=== PATIENT | female | born 1975 | race American Indian/Alaskan Native ===

== ENCOUNTER 2017-01-01 11:00 | Outpatient (CLI) | payer OTHER | END 2017-01-01 11:01 | disposition home or self-care (01) | LOC: SLR 11:00 | PROVIDERS: ATTEND Specialist | DX: G47.30 Sleep apnea, unspecified (principal); E66.9 Obesity, unspecified | CPT/HCPCS: 95810 ==

== ENCOUNTER 2017-06-12 10:30 | Inpatient (IN) | payer OTHER ==
--- NOTE | 2017-06-12 11:05 | Anesthesia Consultation ---
Anesthesia Consult and Med Hx - Airway Anesthetic Teeth Evaluation: Good ROM Head & Neck: Adequate Mental/Hyoid Distance: Adequate Mallampati Class: Class III Intubation Access Assessment: Possibly Difficult - Pulmonary Exam CTA: Yes - Cardiac Exam Cardiac Exam: RRR - Pre-Operative Health Status ASA Pre-Surgery Classification: ASA3 Proposed Anesthetic Plan: General - Pulmonary Hx Sleep Apnea: Yes - Cardiovascular System Hx Hypertension: Yes (6 YEARS) - Central Nervous System Hx Psychiatric Problems: Yes - Hematic Hx Anemia: Yes - Other Systems Hx Alcohol Use: Yes (OCC) Hx Substance Use: No Hx Cancer: No Hx Obesity: Yes
[2017-06-12] MEDS ORDERED: PEPCID PO NR (12:00)
[2017-06-12] MEDS ORDERED: TRANSDERM-SCOP TD NR (12:00)
[2017-06-12] MEDS ORDERED: VERSED IV NR (12:00)
[2017-06-15] MEDS ORDERED: MORPHINE IV PRN ×2 (12:46→13:04)
[2017-06-15] MEDS ORDERED: APRESOLINE IV PRN (12:46)
[2017-06-15] MEDS ORDERED: ZOFRAN IV PRN (12:46)
[2017-06-15] MEDS ORDERED: LACTATED RINGERS 1,000 ML IV SCH (13:00)
[2017-06-16] MEDS ORDERED: NACL BACTERIOSTATIC INFILTRATI ONE (06:33)
[2017-06-16] MEDS ORDERED: MARCAINE 0.5% 30 ML INFILTRATI ONE (06:35)
[2017-06-16] MEDS ORDERED: XYLOCAINE 1% 20 mL ONE (06:35)
[2017-06-16 06:56] LABS: Bilirubin,Urine NEG (Negative); Blood,Urine NEG (Negative); Color,Urine Yellow (Yellow); Protein,Urine <15 mg/dL mg/dL (Negative); Urobilinogen,Urine < 2.0 mg/dL (<2.0)
[2017-06-16] MEDS: LACTATED RINGERS 1,000 ML IV SCH ×3 (07:00→22:34)
[2017-06-16] MEDS ORDERED: LOVENOX SUB-Q NR (07:00)
[2017-06-16] MEDS ORDERED: TRANSDERM-SCOP TD SCH (07:00)
[2017-06-16] MEDS ORDERED: FLAGYL 500 MG/100 ML 500 MG/100 ML BAG IV NR (07:00)
[2017-06-16] MEDS ORDERED: ANCEF/STERILE WATER 2 GM/20 ML 2 GM/20 ML SYRINGE IV NR (07:00)
[2017-06-16] MEDS ORDERED: PEPCID IV SCH (07:07)
[2017-06-16] MEDS ORDERED: VERSED IV NR (07:08)
--- NOTE | 2017-06-16 07:16 | Anesthesia Day of Surgery ---
Anesthesia Day of Surgery - Day of Surgery Patient Examined: Yes Patient H&P Reviewed: Yes Patient is NPO: Yes
[2017-06-16] MEDS ORDERED: DIPRIVAN 10 MG/ML IV ONE ×2 (07:21→07:22)
[2017-06-16] MEDS ORDERED: WATER FOR IRRIG STERILE IR ONE (07:24)
[2017-06-16] MEDS ORDERED: SUBLIMAZE ONE (07:26)
[2017-06-16] MEDS ORDERED: NACL 0.9% IR ONE ×2 (08:25→08:26)
[2017-06-16] MEDS ORDERED: XYLOCAINE 1% 20 mL INFILTRATI ONE (08:26)
[2017-06-16] MEDS ORDERED: MARCAINE 0.5% INFILTRATI ONE (08:26)
[2017-06-16] MEDS ORDERED: ROBINUL ONE (09:39)
[2017-06-16] MEDS ORDERED: ZOFRAN ONE (09:39)
[2017-06-16] MEDS ORDERED: DILAUDID IV PRN (09:42)
[2017-06-16] MEDS: REGLAN IV PRN ×2 (09:48→20:41)
[2017-06-16] MEDS: MYLICON PO PRN ×2 (10:09→19:03)
[2017-06-16] MEDS: NORCO PO PRN (10:18)
[2017-06-16 10:46] LABS: Basophils % (Auto) 0.4 % (0.0-1.8); Eosinophils % (Auto) 0.2 % (0.0-4.3); Hematocrit 36.4 % (30.3-42.9); Hemoglobin 11.4 gm/dl (10.1-14.3); Lymphocytes # (Auto) 1.7 K/mm3 (1.2-5.4); Lymphocytes % (Auto) 20.5 % (13.4-35.0); Mean Corpuscular HGB Conc 31 % (30-34); Mean Corpuscular Volume 75 fl (79-97); Monocytes # (Auto) 0.5 K/mm3 (0.0-0.8); Monocytes % (Auto) 6.6 % (0.0-7.3); Platelet Count 181 K/mm3 (140-440); Red Blood Count 4.86 M/mm3 (3.65-5.03); Red Cell Distribution Width 17.1 % (13.2-15.2)
[2017-06-16 10:48] LABS: Mean Corpuscular Hemoglobin 23 pg (28-32)
[2017-06-16 11:05] LABS: BUN/Creatinine Ratio 9; Blood Urea Nitrogen 6 mg/dL (7-17); Calcium 8.5 mg/dL (8.4-10.2); Hemolysis Index 1
[2017-06-16 11:39] LABS: Alanine Aminotransferase 51 units/L (7-56)
[2017-06-16] MEDS: MORPHINE IV PRN ×2 (12:24→17:10)
--- NOTE | 2017-06-16 14:11 | Post Anesthesia Evaluation ---
- Post Anesthesia Evaluation Patient Participated: Yes Airway Patent: Yes Stable Respiratory Function: Yes Nausea/Vomiting: No Temp > 96.8F: Yes Pain Manageable: Yes Adequeate Hydration: Yes Anesthesia Complications: No
[2017-06-16 19:56] LABS: Hematocrit 33.4 % (30.3-42.9); Hemoglobin 10.6 gm/dl (10.1-14.3)
[2017-06-16] MEDS: DILAUDID IV PRN (20:41)
[2017-06-17] MEDS: NORCO PO PRN ×3 (00:41→13:07)
[2017-06-17] MEDS ORDERED: LOPRESSOR IV SCH (01:00)
[2017-06-17] MEDS ORDERED: LOPRESSOR IV ONE (01:54)
[2017-06-17] MEDS ORDERED: NACL ONE (03:26)
--- NOTE | 2017-06-17 04:08 | Cat Scan Report ---
FINAL REPORT EXAM: CT ANGIO CHEST HISTORY: elevated D-dimers s/p gastric surgery with extended tachycardia TECHNIQUE: A CT angiogram was performed following the intravenous injection of 100 cc of Omnipaque 350. Rotational, sagittal and coronal MIP reconstructions were obtained. FINDINGS: The lungs reveal atelectatic changes in both lower lobes. The lungs are not overtly congested. There is no evidence of pulmonary embolus or aortic dissection. The heart size is normal. Pericardial fluid is not seen. The thoracic aorta is normal in diameter. There is no evidence of adenopathy. In the upper abdomen the adrenal glands appear normal. The skeletal structures are well-maintained. At the thoracic inlet the thyroid gland appears normal. IMPRESSION: No evidence of pulmonary embolus, aortic dissection, or vascular congestion. Bibasilar atelectatic changes. No acute infiltrates or effusions.
[2017-06-17] MEDS: REGLAN IV PRN (04:20)
[2017-06-17] MEDS: DILAUDID IV PRN (04:20)
[2017-06-17] MEDS: MYLICON PO PRN ×2 (04:20→10:45)
--- NOTE | 2017-06-17 05:02 | Consultation ---
REQUESTING CONSULT: Dr. Burger. REASON FOR CONSULT: Medical management of 41-year-old postop patient, who had gastric bypass procedure, presenting with tachycardia. HISTORY OF PRESENT ILLNESS: The patient is a 41-year-old female who had gastric bypass procedure done yesterday and was noted to be having tachycardia with pulse rates running up to 130s and the patient denies history of chest pain. Denies history of shortness of breath, fever or chills and was presented for consultation because of tachycardia. PAST MEDICAL HISTORY: Pertinent for hypertension, anemia, sudden rapid heartbeat in the past, and also the patient has past history of obesity and some ill-defined psychiatric illness. FAMILY HISTORY: Noncontributory. SOCIAL HISTORY: The patient drinks alcohol and the patient does not use illicit drugs. It is not known whether the patient smokes cigarettes. REVIEW OF SYSTEMS: CONSTITUTIONAL: There is no fever, no chills, no diaphoresis. HEENT: There is no headache or sore throat. CARDIOVASCULAR SYSTEM: Rapid heartbeat noted. No chest pain. RESPIRATORY: There is no shortness of breath or cough. GASTROINTESTINAL SYSTEM: There is no nausea, no vomiting, but of course there is abdominal pain at the site of surgery. NEUROLOGICAL SYSTEM: There is no numbness, no dizziness, no altered mental status. MUSCULOSKELETAL SYSTEM: There is no joint pain or swelling. DERMATOLOGICAL SYSTEM: There is no skin rash or itching. GENITOURINARY: There is no dysuria, hematuria or flank pain. Rest of system review is normal. PHYSICAL EXAMINATION: GENERAL: At the time of exam, the patient was found to be alert, oriented x 3 and not in acute distress. VITAL SIGNS: Shows temperature of 99.9, pulse of 129, respirations of about 18, blood pressure of 134/65, O2 sat of 95% on room air. HEENT: Pupils to be equal, round and reactive to light and accommodating. Extraocular muscles are intact. NECK: Supple with no JVD or carotid bruit. CARDIOVASCULAR SYSTEM: Showed normal first and second heart sounds with rapid beat with no gallops or murmurs. RESPIRATORY SYSTEM: Show good air entry on both sides of the lungs with no abnormal breath sounds. GASTROINTESTINAL: Abdominal exam was deferred because of recent surgery. NEUROLOGIC: Showed no focal deficits. MUSCULOSKELETAL SYSTEM: Show no joint swelling or tenderness. DERMATOLOGICAL SYSTEM: Show no skin rash. GENITOURINARY: Showing no costovertebral angle tenderness. PERTINENT LABORATORY DATA AND IMAGING STUDIES: The patient's CBC done on 06/16/2017 showed normal white count, normal hemoglobin and normal hematocrit. CBC differential showed elevated segmented neutrophil of 72.3%. The patient's chemistry shows low sodium of 132, normal potassium and low chloride of 96.6. The patient's renal function was unremarkable. Glucose level was unremarkable. The patient's urinalysis was unremarkable. ASSESSMENT AND PLAN: A 41-year-old female with 1 day postop gastric bypass procedure with tachycardia. The patient will have 12-lead EKG done and D-dimer also checked and if D-dimer is elevated, the patient will have CT angiogram of the chest to rule out: PE that is common during procedure of the gastric bypass. The patient will continue other management postoperatively and the hospitalist group will follow up with the patient. JOB# [id number] OCN/NTS
[2017-06-17 06:20] LABS: Basophils % (Auto) 0.3 % (0.0-1.8); Hemoglobin 10.1 gm/dl (10.1-14.3); Lymphocytes # (Auto) 1.6 K/mm3 (1.2-5.4); Mean Corpuscular HGB Conc 33 % (30-34); Mean Corpuscular Volume 72 fl (79-97); Monocytes # (Auto) 1.1 K/mm3 (0.0-0.8); Monocytes % (Auto) 11.4 % (0.0-7.3); Platelet Count 150 K/mm3 (140-440); Red Blood Count 4.28 M/mm3 (3.65-5.03); Red Cell Distribution Width 17.2 % (13.2-15.2)
[2017-06-17 06:24] LABS: Mean Corpuscular Hemoglobin 24 pg (28-32)
[2017-06-17 06:40] LABS: BUN/Creatinine Ratio 7; Blood Urea Nitrogen 4 mg/dL (7-17); Calcium 7.6 mg/dL (8.4-10.2); Hemolysis Index 4
[2017-06-17] MEDS: LOVENOX SUB-Q SCH ×2 (08:55→10:00)
[2017-06-17] MEDS: PROzac PO SCH ×2 (08:55→10:00)
[2017-06-17] MEDS ORDERED: LOPRESSOR PO SCH (14:30)
--- NOTE | 2017-06-17 15:15 | Discharge Summary ---
Providers - Providers Date of Admission: 06/16/17 05:56 Date of discharge: 06/17/17 Attending physician: JAMES LEVY 06/16/17 19:24 Consult to Physician [CONS] Urgent Comment: Consulting Provider: KEO MUJICA Physician Instructions: eval and treat Reason For Exam: elevated heart rate Primary care physician: HUY LYNN Hospitalization Condition: Good Disposition: DC-01 TO HOME OR SELFCARE Core Measure Documentation - Palliative Care Palliative Care/ Comfort Measures: Not Applicable - Core Measures Any of the following diagnoses?: none Exam - Constitutional Vitals: Temp Pulse Resp BP Pulse Ox 98.9 F 94 H 18 119/79 97 06/17/17 12:00 06/17/17 13:09 06/17/17 12:00 06/17/17 12:00 06/17/17 13:09 General appearance: Present: no acute distress, well-nourished - EENT Eyes: Present: PERRL, EOM intact ENT: hearing intact, clear oral mucosa, dentition normal - Neck Neck: Present: supple, normal ROM - Respiratory Respiratory effort: normal Respiratory: bilateral: CTA - Cardiovascular Rhythm: regular - Extremities Extremities: no ischemia, pulses intact, No edema, Full ROM Peripheral Pulses: within normal limits - Abdominal General gastrointestinal: Present: soft, non-tender, normal bowel sounds Female genitourinary: Present: deferred - Rectal Rectal Exam: deferred - Integumentary Integumentary: Present: clear, warm, dry - Musculoskeletal Musculoskeletal: strength equal bilaterally - Psychiatric Psychiatric: appropriate mood/affect Plan Activity: no restrictions Weight Bearing Status: Full Weight Bearing Diet: regular Wound: keep clean and dry Follow up with: HUY LYNN MD [Primary Care Provider] - 7 Days JAMES LEVY MD [Staff Physician] - 7 Days
[2017-06-17 17:58] VITALS: BP 113/64
--- NOTE | 2017-06-17 18:20 | Progress Note ---
Assessment and Plan Assessment and plan: Assessment Sinus Tachy, improved Morbid Obesity s/p Gastric Sleeve HTN, essen, chronic Plan thank you for the opportunity to participate in the care of Ms Marrero [facility] restart Metoprolol, done consider and obtain Rapid strep okay to d/c home from the Hospital medicine stand point. w will sign off now 30 mins spent History Interval history: Ms Marrero is a pleasant 41 y/o female s/p Gastric Sleeve, had Sinus Tachy for which the hospital medicine team was consulted to assist in pt;s medical mgt. Pt seen and exam, doing better HR improved Pt has h/o Tachy and is supposed to be Metoprolol Tartrate 50mg BID. Son was just diagnosed with Strep throat Hospitalist Physical - Constitutional Vitals: Temp Pulse Resp BP Pulse Ox 97.9 F 84 18 113/64 94 06/17/17 17:57 06/17/17 17:57 06/17/17 17:57 06/17/17 17:57 06/17/17 15:53 General appearance: Present: no acute distress, well-nourished, obese - EENT Eyes: Present: PERRL, EOM intact ENT: hearing intact, clear oral mucosa, dentition normal - Neck Neck: Present: supple, normal ROM - Respiratory Respiratory effort: normal Respiratory: bilateral: CTA - Cardiovascular Rhythm: regular Heart Sounds: Present: S1 & S2 - Extremities Extremities: no ischemia, pulses intact, pulses symmetrical, No edema Peripheral Pulses: within normal limits - Abdominal General gastrointestinal: soft, other (appropriately tender at surgical site. ) - Integumentary Integumentary: Present: clear, warm, dry - Psychiatric Psychiatric: appropriate mood/affect, intact judgment & insight, cooperative - Neurologic Neurologic: CNII-XII intact, moves all extremities - Allied Health Allied health notes reviewed: nursing, social work Results - Labs CBC & Chem 7: 06/17/17 05:46 06/17/17 05:46 Labs: Laboratory Last Values WBC 9.5 K/mm3 (4.5-11.0) 06/17/17 05:46 RBC 4.28 M/mm3 (3.65-5.03) 06/17/17 05:46 Hgb 10.1 gm/dl (10.1-14.3) 06/17/17 05:46 Hct 31.0 % (30.3-42.9) 06/17/17 05:46 MCV 72 fl (79-97) L 06/17/17 05:46 MCH 24 pg (28-32) L 06/17/17 05:46 MCHC 33 % (30-34) 06/17/17 05:46 RDW 17.2 % (13.2-15.2) H 06/17/17 05:46 Plt Count 150 K/mm3 (140-440) 06/17/17 05:46 Lymph % (Auto) 17.0 % (13.4-35.0) 06/17/17 05:46 [place] % (Auto) 11.4 % (0.0-7.3) H 06/17/17 05:46 Eos % (Auto) 0.0 % (0.0-4.3) 06/17/17 05:46 Baso % (Auto) 0.3 % (0.0-1.8) 06/17/17 05:46 Lymph # 1.6 K/mm3 (1.2-5.4) 06/17/17 05:46 [place] # 1.1 K/mm3 (0.0-0.8) H 06/17/17 05:46 Eos # 0.0 K/mm3 (0.0-0.4) 06/17/17 05:46 Baso # 0.0 K/mm3 (0.0-0.1) 06/17/17 05:46 Seg Neutrophils % 71.3 % (40.0-70.0) H 06/17/17 05:46 Seg Neutrophils # 6.8 K/mm3 (1.8-7.7) 06/17/17 05:46 D-Dimer 801.27 ng/mlDDU (0-234) H 06/17/17 01:36 Sodium 134 mmol/L (137-145) L 06/17/17 05:46 Potassium 3.6 mmol/L (3.6-5.0) 06/17/17 05:46 Chloride 96.8 mmol/L (98-107) L 06/17/17 05:46 Carbon Dioxide 23 mmol/L (22-30) 06/17/17 05:46 Anion Gap 18 mmol/L 06/17/17 05:46 BUN 4 mg/dL (7-17) L 06/17/17 05:46 Creatinine 0.6 mg/dL (0.7-1.2) L 06/17/17 05:46 Estimated GFR > 60 ml/min 06/17/17 05:46 BUN/Creatinine Ratio 7 % 06/17/17 05:46 Glucose 110 mg/dL (65-100) H 06/17/17 05:46 Calcium 7.6 mg/dL (8.4-10.2) L 06/17/17 05:46 Total Bilirubin 0.50 mg/dL (0.1-1.2) 06/16/17 10:24 AST 70 units/L (5-40) H 06/16/17 10:24 ALT 51 units/L (7-56) 06/16/17 10:24 Alkaline Phosphatase 78 units/L (35-129) 06/16/17 10:24 Total Protein 7.2 g/dL (6.3-8.2) 06/16/17 10:24 Albumin 4.0 g/dL (3.9-5) 06/16/17 10:24 Albumin/Globulin Ratio 1.3 % 06/16/17 10:24 Urine Color Yellow (Yellow) 06/16/17 Unknown Urine Turbidity Clear (Clear) 06/16/17 Unknown Urine pH 6.0 (5.0-7.0) 06/16/17 Unknown Ur Specific [place] 1.006 (1.003-1.030) 06/16/17 Unknown Urine Protein <15 mg/dl mg/dL (Negative) 06/16/17 Unknown Urine Glucose (UA) Neg mg/dL (Negative) 06/16/17 Unknown Urine Ketones Neg mg/dL (Negative) 06/16/17 Unknown Urine Blood Neg (Negative) 06/16/17 Unknown Urine Nitrite Neg (Negative) 06/16/17 Unknown Urine Bilirubin Neg (Negative) 06/16/17 Unknown Urine Urobilinogen < 2.0 mg/dL (<2.0) 06/16/17 Unknown Ur Leukocyte Esterase Neg (Negative) 06/16/17 Unknown Urine WBC (Auto) 1.0 /HPF (0.0-6.0) 06/16/17 Unknown Urine RBC (Auto) 5.0 /HPF (0.0-6.0) 06/16/17 Unknown U Epithel Cells (Auto) 4.0 /HPF (0-13.0) 06/16/17 Unknown - Imaging and Cardiology CT scan - chest: report reviewed (negative for PE)
== END 2017-06-17 20:37 | disposition home or self-care (01) | DRG 327 ==
LOC: 3A 06-16 05:56 → 3B-SURG 06-16 10:21
PROVIDERS: ADMIT Specialist; ATTEND Specialist
PROC: 0DQA4ZZ Repair Jejunum, Percutaneous Endoscopic Approach (ICD-10-PCS; principal; 2017-06-16)
PROC: 0DQ64ZZ Repair Stomach, Percutaneous Endoscopic Approach (ICD-10-PCS; 2017-06-16)
PROC: 0D1B4ZH Bypass Ileum to Cecum, Percutaneous Endoscopic Approach (ICD-10-PCS; 2017-06-16)
DX: K95.89 Other complications of other bariatric procedure (principal); Z68.42 Body mass index [BMI] 45.0-49.9, adult; K21.9 Gastro-esophageal reflux disease without esophagitis; I10 Essential (primary) hypertension; F32.9 Major depressive disorder, single episode, unspecified; M54.89 Other dorsalgia; G47.30 Sleep apnea, unspecified; N39.3 Stress incontinence (female) (male); G47.9 Sleep disorder, unspecified; K30 Functional dyspepsia; R00.0 Tachycardia, unspecified; Y83.8 Other surgical procedures as the cause of abnormal reaction of the patient, or of later complication, without mention of misadventure at the time of the procedure; K91.1 Postgastric surgery syndromes; E66.01 Morbid (severe) obesity due to excess calories; Z90.49 Acquired absence of other specified parts of digestive tract; Z98.84 Bariatric surgery status; Z98.51 Tubal ligation status; Z72.89 Other problems related to lifestyle; Y83.2 Surgical operation with anastomosis, bypass or graft as the cause of abnormal reaction of the patient, or of later complication, without mention of misadventure at the time of the procedure
CPT/HCPCS: 36415; 71275; 80048; 80053; 81001; 81025; 85014; 85018; 85025; 85379; 93005; 93010; A4217; J0360; J0690; J1170; J1650; J2250; J2270; J2405; J2704; J2765; J3010; J7120; Q9967

== ENCOUNTER 2017-08-05 11:30 | Day surgery (SDC) | payer BC, OTHER ==
[~2017-08-05 11:30] MED LIST: DILAUDID IV PRN; LACTATED RINGERS 1,000 ML IV SCH; PERCOCET 5/325 PO PRN; TORADOL IV PRN; VERSED IV NR; ZOFRAN IV PRN
[2017-08-05] MEDS ORDERED: DIPRIVAN 10 MG/ML IV ONE (12:10)
[2017-08-05] MEDS ORDERED: TORADOL ONE (12:30)
--- NOTE | 2017-08-05 12:31 | Anesthesia Consultation ---
Anesthesia Consult and Med Hx Date of service: 08/05/17 - Airway Anesthetic Teeth Evaluation: Good ROM Head & Neck: Adequate Mental/Hyoid Distance: Adequate Mallampati Class: Class II Intubation Access Assessment: Probably Good - Pulmonary Exam CTA: Yes - Cardiac Exam Cardiac Exam: RRR - Pre-Operative Health Status ASA Pre-Surgery Classification: ASA2 Proposed Anesthetic Plan: General - Pulmonary Hx Sleep Apnea: Yes - Cardiovascular System Hx Hypertension: Yes (6 YEARS) - Central Nervous System Hx Psychiatric Problems: No - Hematic Hx Anemia: Yes - Other Systems Hx Alcohol Use: Yes Hx Substance Use: No Hx Cancer: No Hx Obesity: Yes
--- NOTE | 2017-08-05 12:32 | Anesthesia Day of Surgery ---
Anesthesia Day of Surgery - Day of Surgery Patient Examined: Yes Patient H&P Reviewed: Yes Patient is NPO: Yes Beta Blockers: Yes
[2017-08-05] MEDS ORDERED: NACL 0.9% IR ONE (13:01)
[2017-08-05] MEDS ORDERED: SUBLIMAZE ONE ×2 (13:10→14:06)
[2017-08-05] MEDS ORDERED: ZOFRAN ONE (13:18)
[2017-08-05] MEDS ORDERED: DECADRON ONE (13:18)
[2017-08-05] MEDS ORDERED: XYLOCAINE MPF 2% ONE (13:18)
--- NOTE | 2017-08-05 16:07 | Post Anesthesia Evaluation ---
- Post Anesthesia Evaluation Patient Participated: Yes Airway Patent: Yes Stable Respiratory Function: Yes Nausea/Vomiting: No Temp > 96.8F: Yes Pain Manageable: Yes Adequeate Hydration: Yes Anesthesia Complications: No Block Receding Appropriately: Not Applicable Patient on Ventilator: No
[2017-08-05 17:31] VITALS: BP 133/82
--- NOTE | 2017-08-10 15:39 | Operative Report ---
Operative Report Operative Report: Preoperative diagnosis: Menometrorrhagia refractory to medical therapy. Postoperative diagnosis: Same as preoperative diagnosis. Procedure: 1. Hysteroscopy. 2. Dilation and curettage. 3. Endometrial ablation with NovaSure Surgeon: Dr. Glynn Train Control Technician: none Anesthesia: General Complications: none IVF: 1 liter of RL EBL: Minimal Procedure details: Risks, benefits, and alternatives of the procedures were discussed in detail with the patient which included but not limited to the risk of infection, hemorrhage requiring blood transfusion, uterine perforation, failure of the endometrial ablation to treat the abnormal bleeding which can result in the need for more surgeries in the future. The patient expressed understanding, her questions were answered, and she gave informed consent. The patient was taken to the operating room with an IV fluid infusing [place] lactate. In the operating room, she was placed in the dorsal supine position and given general anesthesia. She was then placed on the stirups in the dorsolithotomy position. The perineum, vagina, and cervix were washed and she was prepared and draped in usual sterile fashion. Examination under anesthesia revealed a normal external genitalia, vagina, and cervix which was closed, long and posterior without any gross lesion or bleeding. The uterus was 9 week size , anteverted, and mobile. The adnexa were nonpalpable. A weighted speculum was placed on the posterior vaginal wall, the anterior lip of the cervix was grasped with a single-tooth tenaculum, endocervical curettage was done. Then, the cervical os was dilated. The hysteroscope was introduced into the uterine cavity. It revealed a thickened endometrial lining, the ostia were not visualized. The hysteroscope was removed from the uterine cavity and a gentle curettage was performed until a gritty texture was noticed. This specimen which consisted of endometrial curettage was sent to pathology for frozen section. Frozen section revealed benign endometrial cells with no hyperplasia. Endometrial ablation was then performed using NovaSure. The uterine cavity length was measured to be 5.5 cm, width 4.3 cm. The probe was introduced into the uterine cavity and endometrial assessment was performed. The ablation was then performed using a power of 130 [place]cos over 1 minute and 30 seconds. The probe was removed from the uterine cavity without any difficulty. The patient tolerated the procedure well. The counts of laps, needles, sponges and instrument were correct 2. She was awakened from the anesthesia and taken to the recovery room in a stable condition.
== END 2017-08-05 16:42 | disposition home or self-care (01) ==
LOC: OR 11:30
PROVIDERS: ATTEND Obstetrics & Gynecology
DX: N84.0 Polyp of corpus uteri (principal); I10 Essential (primary) hypertension; E66.9 Obesity, unspecified; G47.30 Sleep apnea, unspecified; F32.9 Major depressive disorder, single episode, unspecified; Z98.51 Tubal ligation status; Z90.3 Acquired absence of stomach [part of]; Z68.42 Body mass index [BMI] 45.0-49.9, adult
CPT/HCPCS: 58563; 81025; 88305; 88331; A4217; J1100; J1885; J2250; J2405; J2704; J3010; J7120